=== PATIENT | female | born 1945 | race Caucasian/White ===

== ENCOUNTER 2017-01-19 08:41 | Inpatient (IN) | payer OTHER, MEDICARE ==
--- NOTE | 2017-01-04 10:23 | GHP ---
[f rep st] PREOP HISTORY AND PHYSICAL DATE OF ADMISSION: She will be an a.m. admission for surgery at [facility] on 01/19/2017. PROBLEM: Right knee arthritis. HISTORY OF PRESENT ILLNESS: The patient is a 71-year-old woman admitted for a right total knee arthroplasty. She has had intermittent progressive pain in her right knee for the past 6 or 8 years. She has had some mild left knee pain as well. For the past 6-10 months, her right knee has been particularly painful. She has had cortisone injections which have been temporarily helpful. She has also had viscosupplementation injections 3 times. The last couple of times, they have not helped. She has failed nonsurgical treatment. Her activities and function are very limited. She will undergo a right total knee arthroplasty. PAST MEDICAL HISTORY: She had a left total hip arthroplasty 4 years ago in [place]. Overall, she is in good general health. No history of heart disease, stents, DVT, hepatitis, sleep apnea, or bleeding problems. CURRENT MEDICATIONS: None. DRUG ALLERGIES: Ceclor, Celebrex, Cipro, clindamycin, codeine, Indocin, penicillin, phenobarbital, and Entac. METAL ALLERGIES: None. LATEX ALLERGY: None. SOCIAL HISTORY: The patient is retired. She is . She does not smoke cigarettes and occasionally drinks alcohol. FAMILY HISTORY: Positive for cancer, arthritis, high blood pressure, diabetes, and heart disease. PHYSICAL EXAMINATION: GENERAL: She is an alert, healthy-appearing woman. Height 5 feet 8 inches. Weight 163 pounds. BMI 24.8. EYES: The conjunctivae and sclerae are clear. Pupils are round and reactive. MOUTH: Good oral hygiene. No loose teeth. CHEST: Clear. HEART: Regular rhythm. No murmurs. EXTREMITIES: Pertinent findings limited to her right knee. She has a 10 degree flexion contracture and further flexion to 110 degrees. Good alignment. Mild effusion. Her ligaments are stable. Mild patellofemoral crepitation with active knee extension. IMAGING: Her films show degenerative arthritis in both knees involving all 3 compartments. IMPRESSION ON ADMISSION: Bilateral knee degenerative arthritis. The right knee is more symptomatic of the two. PLAN: She will undergo a right total knee arthroplasty. The surgery has been described to her, including the risks, complications, expectations, and recovery time. I have stressed the importance of postoperative physical therapy. All her questions have been answered, and she consents to surgery. She understands that a small percentage of people do not get a good result with a total knee replacement. /[id number]/MODL MTDD
[~2017-01-19 08:41] MED LIST: POVIDONE-IODINE 20 ML in SODIUM CL IRRIG SOLUTION 500 ML IRR ONE; ROPIVACAINE 0.2% 80 MG, EPINEPHrine 0.2 MG, KETOROLAC TROMETHAMINE 30 MG in BAG 0 ML IU ONE; TRANEXAMIC ACID 750 MG in NS 100 ML IV ONE
[2017-01-19] MEDS ORDERED: VANCOMYCIN 1 GM VIAL ONE (08:55)
[2017-01-19] MEDS ORDERED: ceFAZolin 1 GM/5 ML SYR ONE (08:56)
[2017-01-19] MEDS ORDERED: VANCOMYCIN PHARMACY TO DOSE MISC ONE (09:07)
[2017-01-19] MEDS ORDERED: FAMOTIDINE 20 MG TAB PO ONE (09:07)
[2017-01-19] MEDS ORDERED: DEXAMETHASONE 4 MG/ML VIAL IVP ONE (09:07)
[2017-01-19] MEDS ORDERED: ACETAMINOPHEN 325 MG TAB PO ONE (09:07)
[2017-01-19] MEDS ORDERED: LR 1,000 ML IV ONE (09:08)
[2017-01-19] MEDS ORDERED: LIDOCAINE 1% 2 ML INJ ID PRN (09:08)
[2017-01-19] MEDS ORDERED: VANCOMYCIN 1.25 GM in D5W 250 ML IV ONE (09:30)
--- NOTE | 2017-01-19 09:58 | PDHPUP ---
History & Physical Update H&P update statement: This history and physical update is based on an assessment of the patient which was completed after admission or registration (within 24 hours), but prior to the surgery/procedure. H&P update: H&P reviewed & patient examined, no change in patient's condition since H&P completed
[2017-01-19] MEDS ORDERED: MIDAZOLAM 2 MG/2 ML VIAL IVP ONE (10:18)
--- NOTE | 2017-01-19 10:21 | PDANEPAE ---
ANE History of Present Illness djd r knee s/f R TKA ANE Past Medical History - Cardiovascular History Hx Hypertension: No Hx Arrhythmias: No Hx Chest Pain: No Hx Coronary Artery / Peripheral Vascular Disease: No Hx CHF / Valvular Disease: No Hx Palpitations: No Cardiovascular History Comment: STRESS TEST DONE - Pulmonary History Hx COPD: No Hx Asthma/Reactive Airway Disease: No Hx Recent Upper Respiratory Infection: No Hx Oxygen in Use at Home: No Hx Sleep Apnea: No Sleep Apnea Screening Result - Last Documented: Negative - Neurologic History Hx Cerebrovascular Accident: No Hx Seizures: No Hx Dementia: No - Endocrine History Hx Diabetes: No - Renal History Hx Renal Disorders: No - Liver History Hx Hepatic Disorders: No - Neurological & Psychiatric Hx Hx Neurological and Psychiatric Disorders: Yes Neurological / Psychiatric History Comment: DISTANT ANXIETY - Cancer History Hx Cancer: No - Congenital Disorder History Hx Congenital Disorders: No - GI History Hx Gastrointestinal Disorders: No - Other Health History Other Health History: NONE - Chronic Pain History Chronic Pain: No ANE Review of Systems Review of Systems: - Exercise capacity METS (RN): 5 METS ANE Patient History - Allergies Allergies/Adverse Reactions: cefaclor [From Ceclor] Allergy (Severe, Verified 12/31/16 10:38) SOB celecoxib [From Celebrex] Allergy (Severe, Verified 12/31/16 10:38) PALPITATIONS ciprofloxacin [From Cipro] Allergy (Severe, Verified 12/31/16 10:38) SOB clindamycin Allergy (Intermediate, Verified 12/31/16 10:38) Anxiety Penicillins Allergy (Intermediate, Verified 12/31/16 10:38) SWELLING phenobarbital Allergy (Intermediate, Verified 12/31/16 10:38) Anxiety codeine Allergy (Mild, Verified 12/31/16 10:38) Itching indomethacin [From Indocin] Allergy (Mild, Verified 12/31/16 10:38) Vomiting - Home Medications Home Medications: Ibuprofen [Motrin (*)] 200 mg PO DAILY PRN 12/24/16 [Last Taken 01/12/17] - NPO status NPO Status: no food or drink >8 hours (clears only >2 hours) NPO Since - Liquids (Date): 01/19/17 NPO Since - Liquids (Time): 06:00 (gatorade) NPO Since - Solids (Date): 01/18/17 NPO Since - Solids (Time): 19:00 - Anes Hx Anes Hx: no prior problems - Smoking Hx Smoking Status: Never smoked - Alcohol Use Alcohol Use: Rarely - Family Anes Hx Family Anes Hx: none Family Hx Anesthesia Complications: NONE ANE Labs/Vital Signs - Labs - CBC WBC: reviewed and okay - Vital Signs Blood Pressure: 136/69 Heart Rate: 67 Respiratory Rate: 16 O2 Sat (%): 93 Height: 173.99 cm Weight: 74.843 kg ANE Physical Exam - Airway Neck exam: FROM Mallampati Score: Class 1 Mouth exam: normal dental/mouth exam - Pulmonary Pulmonary: no respiratory distress - Cardiovascular Cardiovascular: regular rate and rhythym - ASA Status ASA Status: I ANE Anesthesia Plan Anesthesia Plan: spinal (with sedation. R/B/A explained and pt agrees to proceed.) Regional Anesthesia: adductor canal FNB
[2017-01-19] MEDS ORDERED: MIDAZOLAM 2 MG/2 ML VIAL ONE (10:23)
[2017-01-19] MEDS ORDERED: LIDOCAINE 2% JELLY 5 ML TUBE ONE (10:30)
[2017-01-19] MEDS ORDERED: ONDANSETRON 4 MG/2 ML VIAL ONE (10:30)
[2017-01-19] MEDS ORDERED: PROPOFOL/EMULSION 500 MG/50 ML BOTTLE IV ONE (10:30)
[2017-01-19] MEDS ORDERED: fentaNYL 100 MCG/2 ML INJ ONE (10:30)
[2017-01-19] MEDS ORDERED: PROPOFOL 200 MG/20 ML VIAL ONE (11:38)
[2017-01-19] MEDS ORDERED: LR 500 ML IV PRN (11:42)
[2017-01-19] MEDS ORDERED: HYDROCODONE/APAP 5/325 TAB PO PRN (11:42)
[2017-01-19] MEDS ORDERED: fentaNYL 100 MCG/2 ML INJ IVP PRN (11:42)
[2017-01-19] MEDS ORDERED: NALOXONE HCL 0.4 MG/ML INJ IVP PRN (11:42)
[2017-01-19] MEDS ORDERED: OXYCODONE/APAP 5/325 TAB PO PRN (11:42)
[2017-01-19] MEDS ORDERED: ALBUTEROL 3 ML DEYVIAL IH PRN (11:42)
[2017-01-19] MEDS ORDERED: ACETAMINOPHEN 500 MG TAB PO PRN (11:42)
[2017-01-19] MEDS ORDERED: METOCLOPRAMIDE 10 MG/2 ML VIAL IVP PRN ×2 (11:42→12:12)
[2017-01-19] MEDS ORDERED: PROMETHAZINE HCL 25 MG/ML INJ IVP PRN ×2 (11:42→12:12)
[2017-01-19] MEDS ORDERED: ONDANSETRON 4 MG/2 ML VIAL IVP PRN ×2 (11:42→12:12)
[2017-01-19] MEDS ORDERED: LABETALOL HCL 50 MG/10 ML SYR IVP PRN (11:42)
[2017-01-19] MEDS ORDERED: MEPERIDINE 25 MG/ML SYR IVP PRN (11:42)
[2017-01-19] MEDS ORDERED: DEXAMETHASONE 4 MG/ML VIAL IVP PRN (11:42)
--- NOTE | 2017-01-19 12:00 | POSTOPPROG ---
Post Op Note Date of Operation: 01/19/17 Surgeon: Tyosn Monet Ceramics Machine Operator: Jaya Zhu/rose Brown Anesthesiologist: Dr. Jeremy Reynolds Anesthesia: IV Sedation, Spinal Post-op Diagnosis: Right knee degenerative arthritis Procedure: Right total knee arthroplasty Inf/Abcess present in the surg proc area at time of surgery?: No EBL: 50-100 (Adductor canal block in PACU)
[2017-01-19] MEDS ORDERED: POLYETHYLENE GLYCOL 3350 17 GM PKT PO PRN (12:12)
[2017-01-19] MEDS ORDERED: TEMAZEPAM 15 MG CAP PO PRN (12:12)
[2017-01-19] MEDS ORDERED: LACTULOSE 20 GM/30 ML UDCUP PO PRN (12:12)
[2017-01-19] MEDS ORDERED: BISACODYL 10 MG SUPP PR PRN (12:12)
[2017-01-19] MEDS ORDERED: PROMETHAZINE HCL 25 MG SUPPR PR PRN (12:12)
[2017-01-19] MEDS ORDERED: oxyCODONE IR 5 MG TAB PO PRN (12:12)
[2017-01-19] MEDS ORDERED: KETOROLAC 30 MG/1 ML SDV IVP PRN (12:12)
[2017-01-19] MEDS ORDERED: CYCLOBENZAPRINE 10 MG TAB PO PRN (12:12)
[2017-01-19] MEDS ORDERED: NS 500 ML IV PRN (12:12)
[2017-01-19] MEDS ORDERED: ONDANSETRON DISINTEGRATING 4 MG TAB PO PRN (12:12)
[2017-01-19] MEDS ORDERED: MAGNESIUM HYDROXIDE 30 ML UDCUP PO PRN (12:12)
[2017-01-19] MEDS ORDERED: DIPHENOXYLATE/ATROPINE LOMOTIL 1 TAB PO PRN (12:12)
[2017-01-19] MEDS ORDERED: traMADol 50 MG TAB PO PRN (12:12)
[2017-01-19] MEDS ORDERED: diphenhydrAMINE 25 MG CAP PO PRN (12:12)
--- NOTE | 2017-01-19 12:29 | POSTANESTH ---
Post Anesthetic Evaluation Cardiovascular Status: Normal, Stable Respiratory Status: Normal, Stable Level of Consciousness/Mental Status: Can Participate in Eval Pain Control: Adequate, Prn Tx Ordered Nausea/Vomiting Control: Adequate, Prn Tx Ordered Complications Possibly Related to Anesthesia: None Noted
[2017-01-19] MEDS ORDERED: LR 1,000 ML IV SCH (12:30)
--- NOTE | 2017-01-19 13:41 | GOP ---
[f rep st] OPERATIVE REPORT DATE OF OPERATION: 01/19/2017 SURGEON: Tyson Monet MD SCRAP BUNCH MAKER: Leo Brown, PAC and Jaya Zhu CFA. ANESTHESIA: A combination of Marcaine, spinal, IV sedation, and adductor canal block by Dr. Jeremy joseph. PREOPERATIVE DIAGNOSIS: Right knee degenerative arthritis POSTOPERATIVE DIAGNOSIS: Right knee degenerative arthritis. PROCEDURE PERFORMED: A right total knee arthroplasty, cemented, Mitchell and Nephew Journey II, posteri or stabilized. FINDINGS: DESCRIPTION OF PROCEDURE: The patient was given 1 g of IV vancomycin preoperatively within 60 minute s of surgery. She also received IV tranexamic acid at a dose of 10 mg/kg. She was placed on the ope rating room table and given spinal anesthesia with Marcaine by Dr. Reynolds. She was then placed supine and given IV sedation. A Barry catheter was not used. She wore a CAMERON stocking and SCD on the nonop erative leg. Her right lower extremity was prepped with ChloraPrep from the upper thigh tourniquet t o the tips of the toes. It was draped free using sterile sheets, stockinette, and Ioban plastic adhe sive drape. The lower leg was wrapped with compressive Coban. The leg was exsanguinated with elevat ion and a 6-inch compressive wrap, and the pneumatic tourniquet was inflated to 250 mmHg. The World Health Organization time-out was performed to verify the correct patient identity and corre ct surgical side and site. The [place] time-out was also performed. The WiOfferayo leg holding device was sterilely attached to the operating room table and used throughout the procedure to help position the knee. A straight midline incision was made, centered on the corona la. Subcutaneous tissues were sharply divided, and hemostasis was obtained using electrocautery. A medial subcutaneous flap was developed, and capsule and synovium were opened in a medial parapatell ar fashion. Extensive degenerative changes were present. The medial capsule and periosteum were steven vated off the rim and medial tibial plateau all the way around to the posteromedial corner. Medial c ollateral ligament was released just enough to balance the medial side of the knee. In order to improve exposure, her patella was prepared first. The original thickness of the patella was measured. Peripheral osteophytes were removed. I cut a flat surface on the back of the patella. The patella was sized for a 35 mm resurfacing component. I removed enough bone from the patella mak ch that the remaining thickness plus the thickness of the patellar component recreated the original t hickness of the patella. The composite patellar thickness was 22 mm. The intramedullary alignment guide system was used to set up the distal femoral cut. The distal femu r was cut in 6 degrees of valgus. Because of a slight preoperative flexion contracture, I made a +2 mm cut on the distal femur. The sizing jig was used to determine proper femoral sizing. I shifted t he 5-block anteriorly 2 mm in order to accommodate a size 5 without notching the anterior cortex. Th e 5-in-1 cutting block was applied, and the anterior and posterior condylar cuts were made. The moses l jig was used to remove the central portion of the distal femur to accommodate the posterior stabili zed femoral component. I was careful to determine proper rotation by referencing off Whitesides line . Each cut was checked for accuracy before and after it was made. The femur was sized for a size 5 posterior stabilized component. The trial component was tapped securely into place and was a good fi t. Next, the tibia was prepared. The proximal tibial cut was made using the extramedullary alignment gu elva system. The cut was made in a few degrees of posterior slope. I was careful to achieve proper v arus, valgus alignment and proper rotation. The posterior compartment was cleared of meniscal remnan ts. Osteophytes were removed from the back of the femoral condyles. I checked the flexion extension gaps, and they were equal, balanced, and rectangular. The tibia was sized for a size 4 component. With the trial component in place, I selected a 9 mm francois yethylene posterior stabilized tibial insert. The knee came to full extension and flexed to 125 degr ees. There was no overstuffing in flexion. Her collateral ligaments were stable and balanced in 90 degrees of flexion and full extension. The trial patellar button was applied, and patellar tracking was checked. Tracking was excellent without any digital pressure. 40 mL of the joint anesthetic cocktail was injected in the posterior capsule, the periarticular struc tures, the quadriceps muscle and tendon areas, and the subcutaneous tissues along the skin edges. A 2nd dose of IV tranexamic acid was given at a dose of 10 mg/kg. The surfaces were prepared for cementing. They were carefully cleaned with the pulsating lavage irri gation and thoroughly dried. The CarboJet device was used to blow dry the cancellous surfaces. A do uble batch of high viscosity methylmethacrylate cement with 2 g of powdered vancomycin added was mixe d. While it was still in a semi-liquid state, all [address] components were cemented in place. Excess cemen t was removed before it hardened. The 9 mm trial tibial insert was re-tried and was the proper thickness. The actual component was ins erted and locked into place. The knee was thoroughly irrigated one final time with a dilute Betadine solution. The tourniquet was deflated, and the total tourniquet time was 43 minutes. The vastus medialis portion of the extensor mechanism was repaired with several interrupted figure-of -eight #2 FiberWire sutures. The capsule and synovium were closed first with multiple interrupted fi [id number] 0 PDS sutures, followed by a running #2 barbed Ethicon StrataFix PDO suture. Subcutane ous tissues were closed with a running 0 barbed Ethicon StrataFix Monoderm suture. The skin was clos ed with a running 3-0 barbed Ethicon StrataFix Monoderm subcuticular suture. The skin was sealed wit h 1/2-inch Steri-Strips. The wound was covered with Xeroform gauze, and flat 4 x 4's. The knee was wrapped with a Kerlix and 6-inch compressive wrap. A long-leg CAMERON stocking and SCD were applied foll owed by the cooling device. The patient wore a stocking and SCD on the opposite leg during the proce dure. I used a size 5 cemented Mitchell and Nephew Oxinium posterior stabilized femoral component, size 4 ceme nted tibial base plate, 9 mm posterior stabilized tibial insert, and a 35 mm cemented round all-polye thylene resurfacing patellar component. The estimated blood loss following inflation of the tourniquet was about 100 mL. The sponge and need le counts were correct on 2 occasions. She was awakened from anesthesia, transferred to her hospital [facility], and taken to PACU in satisfacto ry condition. There were no recognized intraoperative complications. In the PACU, for additional postop pain control, Dr. Jeremy Reynolds performed an adductor canal block. Quang Brown and Jaya Zhu acted as surgical assistants. Their assistance was a medical necess ity for safe completion of the procedure. /[id number]/MODL
--- NOTE | 2017-01-19 16:07 | ASMTCMCOM ---
CM Note CM Note Notes: Patient is POD #[address] Monet. Her initial PT evals recommends home with outpatient follow up. She lives with her and has good support. CM available should her needs change. Date Signed: 01/19/2017 04:06 PM Electronically Signed By:Moriah Silva RN
[2017-01-19] MEDS: ACETAMINOPHEN 325 MG TAB PO SCH ×2 (17:56→23:43)
[2017-01-19] MEDS: FAMOTIDINE 20 MG TAB PO SCH (20:50)
[2017-01-19] MEDS: ASPIRIN 325 MG TAB PO SCH (20:50)
[2017-01-19] MEDS: SENNOSIDES/DOCUSATE SODIUM TAB PO SCH (20:51)
[2017-01-20 04:15] VITALS: TEMP 99
[2017-01-20 04:34] LABS: HEMATOCRIT 33.8 % (38.0-47.0); HEMOGLOBIN 11.7 g/dL (12.6-16.3)
[2017-01-20] MEDS: ACETAMINOPHEN 325 MG TAB PO SCH ×2 (05:19→13:04)
[2017-01-20 07:49] VITALS: BP 111/59; PULSE 66; RESP 16; O2SAT 93
[2017-01-20] MEDS: FAMOTIDINE 20 MG TAB PO SCH (08:36)
[2017-01-20] MEDS: SENNOSIDES/DOCUSATE SODIUM TAB PO SCH (08:36)
[2017-01-20] MEDS: ASPIRIN 325 MG TAB PO SCH (08:36)
[2017-01-20] MEDS ORDERED: FERROUS SULFATE 140 MG TAB.ER PO SCH (09:00)
--- NOTE | 2017-01-20 09:33 | SOAPPROG ---
SOAP Progress Note Assessment/Plan: Assessment: Afebrile. She is walking in the tam. Tramadol for pain. Her dressing is dry. H&H are good. Plan: Continue physical therapy today for walking and stairs. Discharged later today when cleared by physical therapy. 01/20/17 09:32 Objective: Vital Signs Temp Pulse Resp BP Pulse Ox 37.2 C 66 16 111/59 L 93 01/20/17 04:00 01/20/17 07:49 01/20/17 07:49 01/20/17 07:49 01/20/17 07:49 Laboratory Results 01/20/17 04:10 01/19/17 01/20/17 01/21/17 05:59 05:59 05:59 Intake Total 2380 Output Total 1050 Balance 1330 ICD10 Worksheet Patient Problems: Problems Problem Status Onset Osteoarthritis of right knee Acute
--- NOTE | 2017-01-20 10:01 | GDS ---
[f rep st] DISCHARGE SUMMARY ADMISSION DIAGNOSIS: Right knee severe degenerative arthritis. DISCHARGE DIAGNOSIS: Right knee severe degenerative arthritis. OPERATION PERFORMED: 01/19/2017, right total knee arthroplasty. POSTOPERATIVE COMPLICATIONS: None. CONDITION ON DISCHARGE: Improved. DESCRIPTION OF HOSPITAL COURSE: The patient was admitted to the hospital on the morning of surgery. Her admission CBC was normal. The same day, under a combination of Marcaine, spinal, IV sedation, a nd adductor canal block, she underwent a right total knee arthroplasty. Postoperatively, she was marin ated with multimodal DVT prophylaxis, including aspirin. She was seen by Physical Therapy and made e xcellent progress with ambulation and stairs. By the time of discharge, she was afebrile, her dressi ng was dry, and she was independent, walking with a walker. DISPOSITION: The patient is discharged to her home. She will go to outpatient physical therapy. Sh e may progress to full weightbearing on the right as tolerated. Continue aspirin 325 mg p.o. daily f or 21 days. She has prescriptions for oxycodone and tramadol for pain control. I will see her back in the office on February 01, 2017. If there any problems, she is to call me at the office. Copy requested to: Dr. Willy Craft /[id number]/MODL
--- NOTE | 2017-01-20 10:36 | ASDISCHSUM ---
Discharge Information Plan Status:Home with No Needs Medically Cleared to Leave:01/20/2017 Discharge Date:01/20/2017 CM D/C Disposition:Home, Routine, Self-Care ADT D/C Disposition:Home, Routine, Self-Care Projected Discharge Date:01/20/2017 Transportation at D/C:Family Discharge Delay Reason: Follow-Up Date:01/20/2017 Discharge Slot: Final Diagnosis: Placement Information Patient Contact Information Contact Name:EMILIA Relationship: Address:[address] City:[place] Alternate Phone: [facility]/Zip Code:[place] [address] Email: Financial Information Financial Class:HMO and PPO Plans Primary Plan Desc:[email or web address] JOSE L Primary Plan Number:[id number] Secondary Plan Desc:MEDICARE INPATIENT Secondary Plan Number:[id number] Assessment Information BC CM Progress Note CM Note CM Note Notes: Patient is POD #[address] Monet. Her initial PT evals recommends home with outpatient follow up. She lives with her and has good support. CM available should her needs change. Date Signed: 01/19/2017 04:06 PM Electronically Signed By:Moriah Silva RN Intervention Information
== END 2017-01-20 12:45 | disposition home or self-care (01) | DRG 470 ==
LOC: F3N 08:41
PROVIDERS: ADMIT Orthopaedic Surgery; ATTEND Orthopaedic Surgery
PROC: 0SRC0J9 Replacement of Right Knee Joint with Synthetic Substitute, Cemented, Open Approach (ICD-10-PCS; principal; 2017-01-19 10:45)
DX: M17.11 Unilateral primary osteoarthritis, right knee (principal); Z96.642 Presence of left artificial hip joint
CPT/HCPCS: 97110-GP; 97116-GP; 97161-GP; 97165-GO; C1713; G8978-GP-CI; G8979-GP-CI; G8980-GP-CI; G8987-GO-CI; G8988-GO-CI; G8989-GO-CI; J0171; J1100; J1885; J2250; J2405; J2704; J2795; J3010; J3370

== ENCOUNTER 2017-06-04 10:47 | Emergency (ER) | payer OTHER, MEDICARE ==
[2017-06-04] MEDS ORDERED: OXYMETAZOLINE 30 ML NASAL SPRAY ONE (10:51)
[2017-06-04 10:54] VITALS: RESP 16; O2SAT 94
--- NOTE | 2017-06-04 11:10 | EDPHY ---
H & P Time Seen by Provider: 06/04/17 11:01 HPI/ROS: HPI Nosebleed. 72-year-old female by private vehicle with her friend. This patient states that about 15 min prior to arrival she developed a spontaneous left-sided nose bleed. No history of trauma. She reports that she does not get nosebleeds frequently. She is not on any antiplatelet or anticoagulant medications. She was unable to get the bleeding to stop at home with pressure. ROS: Constitutional: No fever, no chills. No weakness. Eyes: No discharge. No changes in vision. ENT: No sore throat. No nasal congestion or rhinorrhea. As above. Respiratory: No cough. No shortness of breath. Cardiac: No chest pain, no palpitations. Gastrointestinal: No abdominal pain, no vomiting, no diarrhea. Musculoskeletal: No back pain. No neck pain. No myalgias or arthralgias. Neurological: No headache. No focal weakness or altered sensation. Past medical history: Hysterectomy, total knee replacement, total hip replacement. Social history: Physical Exam: General Appearance: Alert, no distress. This patient is responding to questions appropriately and in full sentences. This patient appears well- hydrated and well-nourished. Eyes: Pupils equal and round no pallor or injection. No lid edema, erythema or injection. ENT, Mouth: Mucous membranes are moist. Blood in the posterior pharynx. The pharyngeal tissues are otherwise unremarkable. No edema or swelling. No asymmetry suggestive of abscess. No erythema or exudates. Blood in the bilateral nasal cavities. However bleeding source appears to be on the left side. It appears to be anterior mid septum on the left on initial exam. Respiratory: There are no retractions, lungs are clear to auscultation with good air movement bilaterally. Cardiovascular: Regular rate and rhythm. No murmur. Gastrointestinal: Abdomen is soft and nontender, no masses, bowel sounds normal. No focal tenderness at McBurney's point. No Stephens sign. Neurological: Motor sensory function is grossly intact. Cranial nerves are normal. Gait is normal. Skin: Warm and dry, no rashes. Musculoskeletal: Neck is supple and nontender. Extremities are symmetrical. All joints range without pain or impingement. Psychiatric: No agitation. No depression. Database: EKG: Imaging: Procedures: Procedure: Epistaxis control. After verbal consent was obtained, the patient was anesthetized with with a cotton Afrin soaked pledget applied with forceps into the left nasal cavity. The anterior epistaxis was identified. The patient was treated with silver nitrate cautery initially which would not take, this was followed by placement of a 4.5 cm rhino rocket nasal balloon. Following the procedure the patient was re-examined and the bleeding was well controlled. The patient tolerated the procedure well. The procedure was performed by myself. Emergency department course: Vital signs reviewed. Patient is moderately hypertensive. After placing Afrin cotton soaked pledget in the left nasal cavity. This was allowed to sit for 10- 15 minutes. 11:40 a.m., patient re-evaluated after placement of nasal balloon. She is uncomfortable with that in place. I removed 2 cc and she now feels better. I spoke with Dr. Deep Henley of the ENT service. He agrees with above management. The patient is allergic to most antibiotics. We will not place her on prophylactic antibiotics for sinus infection/toxic shock syndrome. Dr. Henley is in agreement with this. There is no significant literature to back up this practice any way. Plan will be to have the patient follow up with Dr. Henley or associate on Wednesday in clinic for removal of packing and any further management. Dr. Henley feels that cautery at this time would not be the best option as it would promote scabbing and possible scarring. With nasal balloon treatment only this would likely be avoided. This plan was passed onto the patient. On re-evaluation at 11:50 a.m., she is comfortable. She has excellent hemostasis she feels comfortable going home with the above follow-up plan. Return to emergency department precautions reviewed with her. All of her questions were answered. She was discharged in good condition with her and friend. Differential Diagnosis: The differential diagnosis on this patient includes but is not limited to anterior epistaxis. Posterior epistaxis, coagulopathy unlikely. This represents a partial list of diagnoses considered. These considerations are based on history, physical exam, past history, reassessment and diagnostic testing. Smoking Status: Never smoked Constitutional: Initial Vital Signs Heart Rate 89 06/04/17 10:52 Respiratory Rate 16 06/04/17 10:52 Blood Pressure 159/84 H 06/04/17 10:52 O2 Sat (%) 94 06/04/17 10:52 O2 Delivery Mode Room Air Allergies/Adverse Reactions: cefaclor [From [facility]] Allergy (Severe, Verified 06/04/17 10:55) Pt reports SOB celecoxib [From Celebrex] Allergy (Severe, Verified 06/04/17 10:55) Pt reports PALPITATIONS ciprofloxacin [From Cipro] Allergy (Severe, Verified 06/04/17 10:55) Pt report SOB clindamycin Allergy (Intermediate, Verified 06/04/17 10:55) Pt reports Anxiety Penicillins Allergy (Intermediate, Verified 06/04/17 10:55) Pt reports SWELLING phenobarbital Allergy (Intermediate, Verified 06/04/17 10:55) Pt reports Anxiety codeine Allergy (Mild, Verified 06/04/17 10:55) Pt reports Itching indomethacin [From Indocin] Allergy (Mild, Verified 06/04/17 10:55) Pt reports Vomiting Home Medications: Medication Instructions Recorded Vitamin D3 06/04/17 Departure - Departure Disposition: Home, Routine, Self-Care Clinical Impression: Anterior epistaxis Condition: Good Instructions: Nosebleed (ED) Additional Instructions: Read and follow provided instructions. Follow-up with Dr. Deep Henley or 1 of his partners with the ENT service in clinic on Wednesday for re-evaluation and removal of nasal packing. Call their office on Wednesday to schedule appointment time. The nasal balloon is to remain in place until you are seen on Wednesday in ENT clinic. Return to the emergency department for bleeding, pain, fever or other serious concerns. Referrals: Deep Henley MD [Medical Doctor] - As per Instructions
[2017-06-04 12:00] VITALS: BP 132/79; PULSE 74; TEMP 97.5
== END 2017-06-04 12:00 | disposition home or self-care (01) ==
LOC: CED 10:47
PROC: 095KXZZ Destruction of Nasal Mucosa and Soft Tissue, External Approach (ICD-10-PCS; principal; 2017-06-04)
DX: R04.0 Epistaxis (principal)

== ENCOUNTER 2017-06-04 18:42 | Emergency (ER) | payer OTHER, MEDICARE ==
--- NOTE | 2017-06-04 19:25 | EDPHY ---
H & P Stated Complaint: [place] [facility] [place] Time Seen by Provider: 06/04/17 19:09 HPI/ROS: CHIEF COMPLAINT: Epistaxis HISTORY OF PRESENT ILLNESS: The patient is a 72-year-old female who comes to the emergency department complaining of epistaxis in the left naris. The patient was seen earlier today at Urgent Care. She does not take any anti- platelet or anticoagulants. She states that she gets frequent nosebleeds with the usually. After few minutes. She was seen today by Dr. Palomino who initially instilled Afrin and then attempted to cauterize unsuccessfully and he eventually placed a rhino rocket. The patient had some discomfort and so to cc of air was withdrawn. She has multiple antibiotic allergies so this was discussed with Dr. Henley from ENT who will see her on Wednesday for follow-up and hopefully cauterization. They agreed not to start antibiotics at this time. The patient was home this evening when she felt like she had saturation of the rhino rocket and thought that she swallowed a clot. She came here for examination. REVIEW OF SYSTEMS: Constitutional: denies: chills, fever, recent illness, recent injury EENTM: See HPI Respiratory: denies: cough, shortness of breath Cardiac: denies: chest pain, irregular heart rate, lightheadedness, palpitations Gastrointestinal/Abdominal: denies: abdominal pain, diarrhea, nausea, vomiting, blood streaked stools Genitourinary: denies: dysuria, frequency, hematuria, pain Musculoskeletal: denies: joint pain, muscle pain Skin: denies: lesions, rash, jaundice, bruising Neurological: denies: headache, numbness, paresthesia, tingling, dizziness, weakness Hematologic/Lymphatic: denies: blood clots, easy bleeding, easy bruising Immunologic/allergic: denies: HIV/AIDS, transplant EXAM: GENERAL: Well-appearing, well-nourished and in no acute distress. HEAD: Atraumatic, normocephalic. EYES: Pupils equal round and reactive to light, extraocular movements intact, sclera anicteric, conjunctiva are normal. ENT: No evidence of bleeding anteriorly or posteriorly. No saturation of the rhino rocket. It is remains white. No blood streaks down her throat. I did have her spit and no blood in her spit. TMs normal, nares patent, oropharynx clear without exudates. Moist mucous membranes. NECK: Normal range of motion, supple without lymphadenopathy or JVD. LUNGS: Breath sounds clear to auscultation bilaterally and equal. No wheezes rales or rhonchi. HEART: Regular rate and rhythm without murmurs, rubs or gallops. ABDOMEN: Soft, nontender, normoactive bowel sounds. No guarding, no rebound. No masses appreciated. BACK: No CVA tenderness, no spinal tenderness, step-offs or deformities EXTREMITIES: Normal range of motion, no pitting or edema. No clubbing or cyanosis. NEUROLOGICAL: Cranial nerves II through XII grossly intact. Normal speech, normal gait. 5/5 strength, normal movement in all extremities, normal sensation PSYCH: Normal mood, normal affect. SKIN: Warm, dry, normal turgor, no visible rashes or lesions. Source: Patient Exam Limitations: No limitations - Personal History Current Tetanus/Diphtheria Vaccine: Yes Current Tetanus Diphtheria and Acellular Pertussis (TDAP): Yes - Medical/Surgical History Hx Asthma: No Hx Chronic Respiratory Disease: No Hx Diabetes: No Hx Cardiac Disease: No Hx Renal Disease: No Hx Cirrhosis: No Hx Alcoholism: No Hx HIV/AIDS: No Hx Splenectomy or Spleen Trauma: No Other PMH: hysterectomy, lt EVA, R TKA - Family History Significant Family History: No pertinent family hx - Social History Smoking Status: Never smoked Alcohol Use: Sober Drug Use: None Constitutional: Initial Vital Signs Temperature (C) 36.7 C 06/04/17 18:51 Heart Rate 85 06/04/17 18:51 Respiratory Rate 15 06/04/17 18:51 Blood Pressure 155/66 H 06/04/17 18:51 O2 Sat (%) 93 06/04/17 18:51 O2 Delivery Mode Room Air Allergies/Adverse Reactions: cefaclor [From Ceclor] Allergy (Severe, Verified 06/04/17 10:55) Pt reports SOB celecoxib [From Celebrex] Allergy (Severe, Verified 06/04/17 10:55) Pt reports PALPITATIONS ciprofloxacin [From Cipro] Allergy (Severe, Verified 06/04/17 10:55) Pt report SOB clindamycin Allergy (Intermediate, Verified 06/04/17 10:55) Pt reports Anxiety Penicillins Allergy (Intermediate, Verified 03/09/18 10:55) Pt reports SWELLING phenobarbital Allergy (Intermediate, Verified 06/04/17 10:55) Pt reports Anxiety codeine Allergy (Mild, Verified 06/04/17 10:55) Pt reports Itching indomethacin [From Indocin] Allergy (Mild, Verified 06/04/17 10:55) Pt reports Vomiting Home Medications: Medication Instructions Recorded Vitamin D3 06/04/17 Medical Decision Making ED Course/Re-evaluation: 7:24 p.m. I see no evidence of bleeding. The patient's nose remains tamponaded. I agreed to observe her for a period of time to see if it restarts and have her road test. Patient and seem happy with this. 7:45 p.m. the patient would like to go home. She has not had any rebleeding. We discussed indications for returning. Differential Diagnosis: Partial list of the Differential diagnosis considered include but were not limited to; anterior epistaxis, coagulopathy and although unlikely based on the history and physical exam, I also considered infection, trauma. Departure - Departure Disposition: Home, Routine, Self-Care Clinical Impression: Acute anterior epistaxis Condition: Fair Instructions: Nosebleed (ED) Referrals: ERNST ESCOBEDO [Primary Care Provider] - As per Instructions Deep Henley MD [Medical Doctor] - 2-3 days without fail
[2017-06-04 19:53] VITALS: BP 142/74; PULSE 77; RESP 20; TEMP 97.9; O2SAT 92
== END 2017-06-04 19:55 | disposition home or self-care (01) ==
DX: R04.0 Epistaxis (principal)

== ENCOUNTER → 2017-12-01 | Outpatient (CLI) | payer OTHER, MEDICARE | LOC: FIMAGING 12:30 | PROVIDERS: ATTEND Surgery | DX: Z12.31 Encounter for screening mammogram for malignant neoplasm of breast (principal); Z80.3 Family history of malignant neoplasm of breast ==